=== PATIENT | female | born 1935 | race African-American/Black ===

== ENCOUNTER → 2020-02-11 | Outpatient (CLI) | payer MEDICARE ==
--- NOTE | 2020-02-11 12:35 | RADIOLOGY REPORT (SQ) ---
EXAM DESCRIPTION: HIP RIGHT AP/LATERAL IMAGES COMPLETED DATE/TIME: 02/11/2020 12:21 pm REASON FOR STUDY: [employer] (CURRENT) USE OF OPIATE ANALGESIC Z79.891 [employer] (CURRENT) USE OF OP IATE ANALGESIC COMPARISON: None. NUMBER OF VIEWS: Two views. TECHNIQUE: AP pelvis and additional frog-leg view of the right hip. LIMITATIONS: None. FINDINGS: MINERALIZATION: Normal. RIGHT HIP: Marked asymmetric narrowing superolateral aspect of the right hip with mild subchondral s clerosis and small osteophytes of the femoral head and acetabular margin. LEFT HIP: No fracture or dislocation. No worrisome bone lesions. PUBIS AND ISCHIUM: No fracture. PELVIS: No fracture. A calcified 2.1 cm density in the midline pelvic region, considerations for thi s finding includes uterine fibroid. SACRUM: No fracture or dislocation. Mild degenerative changes mid-distal SI joints. LOWER LUMBAR SPINE: Degenerative changes lower lumbar spine. SOFT TISSUES: No findings. OTHER: No other significant finding. IMPRESSION: 1. Moderate severe osteoarthrosis right hip. 2. No acute osseous findings. 3. Additional findings as above. TECHNICAL DOCUMENTATION: JOB ID: [id number] [employer]- All Rights Reserved Reading location - IP/workstation name: [email or web address]
== END ==
LOC: RAD 11:35
PROVIDERS: ATTEND Physician Assistant
DX: M16.11 Unilateral primary osteoarthritis, right hip (principal); Z79.891 Long term (current) use of opiate analgesic